=== PATIENT | male | born 1970 | race Two or more races ===

== ENCOUNTER 2017-08-31 19:15 | Emergency (ER) | payer SELFPAY ==
[~2017-08-31] VITALS: Ht 167.6 cm; Wt 91.2 kg
[2017-08-31] MEDS ORDERED: PREDNISONE 10MG10 MG PO (19:41)
[2017-08-31] MEDS ORDERED: FAMCICLOVIR500 MG PO (19:41)
--- NOTE | 2017-08-31 19:42 | Emergency Room Report ---
History of Present Illness Time Seen by 1918 Presenting Problem in Triage Pt arrived:Walked Presenting Problem:C/O PERIODS OF SLEEP APNEA ON TUESDAY AND WOKE UP TUESDAY AM WITH RIGHT SIDED FACIAL DROOP AND DIFFICULTY CLOSING RIGHT EYE. EQUAL RN NEUROSURGICAL/ MOVEMENT NOTED BILATERALLY. 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 N Clinical Suspician of Infection? N Mental Status: 1 - Regular (Normal Baseline) Sepsis Risk:Low Sepsis Risk Have you (or family members/close friends) recently traveled outside the [place]? N If Yes, where/when: Have you had exposure to infectious disease within the past month? N TB? Other? Specify: Comment The patient complains of RIGHT sided facial weakness that began overnight on Tuesday or Tuesday morning. He woke up with it in the morning on Tuesday 4 days ago. He has no numbness, no visual problems, no speech problems, no problems with his arms or legs area no dizziness or loss of balance. No headache. No rashes. He is on no medications and is normally healthy. He noted that when he blew his nose on Tuesday some mucus came out into his right eye, which was unusual for him. Also his felt that he had some sleep apnea on Tuesday night. ALLERGIES Coded Allergies: No Known Allergies (08/31/17) History Medical History General CAD? No Angina: No [place]: No Hypertension? No Hyperlipidemia? No CHF? No DVT? No PE? No COPD? No Asthma? No Anemia? No GERD? No Gastric ulcers? No GI Bleed? No Hernia? No Thyroid Problems? No Hypothyroidism? No CVA? No Seizures? No Diabetes? No Renal Insuffiency? No End Stage Renal Disease? No UTI? No Stones? No BPH? No GB Disease: No Nephritic Syndrome? No Asplenia? No Hepatitis? No Sickle Cell Disease? No Arthritis? No Migraines? No Cataracts? No Glaucoma? No MRSA? No HIV? No TB? No Anxiety? No Depression? No Cancer? No Immunization Hx DT/Tetanus Unknown Surgical Hx Previous Surgery?N Social History Smoking Hx Smoker: Never Smoker Tobacco: No Alcohol Alcohol: No Review of Systems All Other Systems Reviewed and Negative Constitutional denies fever Eyes denies blindness, denies blurred vision, denies decreased acuity, denies vision change Respiratory denies shortness of breath Cardiovascular denies chest pain Gastrointestinal denies abdominal pain, denies nausea, denies vomiting Psychiatric/Neurological denies headache, denies numbness, weakness (RIGHT face only) Physical Exam Vital Signs Vital Signs Date Time Temp Pulse Resp B/P Pulse O2 O2 Flow FiO2 Ox Delivery Rate 08/31 1917 98.8 89 20 165/102 97 - WBC >12,000 or <4,000 or 10% bands? 2 or more SIRS Criteria Met? B/P:165/102 MAP:123 Creatinine >2.0? UA output<0.5ml/kg/hr for 2 hrs? Platelet count >100,000? Lactate >2.0mmol/1? INR >1.2 or PTT > than 60 sec? Evidence of Organ Dysfunction? Provider documented clinical suspician of infection? N Sepsis Criteria Count: 1 Sepsis Risk: Low Sepsis Risk General Appearance normal appearance, WD/WN Eye Exam - bilateral eye normal exam, bilateral eye PERRL, bilateral eye EOMI Ear, Nose, Throat hearing grossly normal, normal ENT inspection, external auditory canals and tympanic membranes normal. Neck normal inspection, non-tender, supple, full range of motion Respiratory Status Yes: trachea midline, chest symmetrical, non tender chest. No: respiratory distress. Lung Sounds bilateral: normal breath sounds, lungs clear. Cardiovascular normal exam, regular rate/rhythm, no peripheral edema, no gallop, no JVD, no murmur, no rub, normal peripheral pulses Peripheral Pulses Pulses normal Yes Gastrointestinal normal bowel sounds, normal exam, non tender, soft, no organomegaly Extremities non-tender, normal range of motion, normal inspection Neurologic alert, oriented x 3, RIGHT facial palsy, upper and lower face. Unable to completely close RIGHT eye, weak blink on the RIGHT. Unable to raise RIGHT eyebrow or wrinkle nose. RIGHT lower facial droop, unable to smile with RIGHT side of mouth., sensation of face and remainder of body normal., remainder of cranial nerves, motor, sensory, and cerebellar examinations all normal. Speech normal. Mentation normal., no rashes or vesicles. Mental status normal mood/affect Skin intact, normal color, warm/dry Comments Blood pressure 140/90 Medical Decision Making LABS/Meds/Orders Pt receiving controlled substance in ED? No Results/Orders Current Medication Orders Sig/Alcides Start time Last Medication Dose Route Stop Time Status Admin Acyclovir Sodium 800 MG ONCE ONE 08/31 1945 AC PO 08/31 1946 Methylprednisolone 125 MG ONCE ONE 08/31 1945 AC Sodium Succinate IV 08/31 1946 Sodium Chloride 10 ML PRN PRN 08/31 1930 AC IV 09/01 1922 Orders Procedure Date/time Status IV SALINE LOCK 08/31 1923 Active Departure Departure Disposition DC Home or Self Care(routine) Clinical Impression Primary Impression: Castellano's palsy Condition STABLE Referrals NO REFERRAL (PCP) Patient Instructions DI for Castellano's Palsy [facility] Use in RIGHT eye every hour while awake and once before bed. Close eye lid on RIGHT side with tape to hold it closed overnight. Follow-up recheck by primary care physician next week. Prescriptions Current Visit Scripts Famciclovir (Famciclovir 500MG) 500 MG PO TID #21 TAB Prednisone (Prednisone 10MG) 10 MG PO DAILY #27 TAB 6 po on days 1-2, then decrease dose by 1 pill per day until gone ED Critical Care Critical Care No at 1941
--- OUTSIDE RECORDS SUMMARY | 2017-08-31 19:49 | External Medical Summary Rpt | CCD ---
Demographics Preferred Language Bangladeshi Marital Status Unknown Restorationism Affiliation Unknown Race Unknown Ethnic Group Unknown Author Author , JERRI GUTHRIE Address Unknown Phone Immunization No patient found.
--- OUTSIDE RECORDS SUMMARY | 2017-08-31 19:49 | External Medical Summary Rpt | CCD ---
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 Name Role Phone FLORINA MCKINNEY MD, Unavailable Unavailable FLORINA MCKINNEY MD Purpose Continuity of Care Document - 08-19-2013 through 2016 Problems Code Diagnosis DOS Provider Status 462 462 ACUTE 08-19-2013 [place] [facility] Allergies, Adverse Reactions, Alerts Type Allergy to substance Adverse Reaction to Substance Substance Reaction Severity NO KNOWN ALLERGIES Unknown Unknown Vital Signs 08-19-2013 09:53 Name Value Interpretat Reference Comment ion Range Body 99.6 [degF] Temperature BP 64 mm[Hg] Diastolic BP Systolic 161 mm[Hg] Heart 95 /min Rate/Pulse O2% 97 % Respiratory 20 /min Rate Results Labs Lab Lab Date Result Refere Interp Status Commen Order Detail nces retati t Range on STREP SCREEN (RAPID) (08-19-2013 09:10) STREP NEGATIV complet SCREEN 013 E ed (RAPID) 09:10 Encounters Encounter Start End Date Code Location Performer Type Date Emergency KERON MCKINNEY MD (ER) 3 09:14 3 09:57 [facility]
--- OUTSIDE RECORDS SUMMARY | 2017-08-31 19:49 | External Medical Summary Rpt ---
Author Author JERRI Collado, [employer] Organization [employer] Address Unknown Phone Unavailable
--- OUTSIDE RECORDS SUMMARY | 2017-08-31 19:49 | External Medical Summary Rpt | CCD ---
Demographics Preferred Language Nicaraguan Marital Status Unknown Orthodoxy Affiliation Unknown Race Unknown Ethnic Group Unknown Author Author , JERRI GUTHRIE Address Unknown Phone Immunization No patient found.
--- OUTSIDE RECORDS SUMMARY | 2017-08-31 19:49 | External Medical Summary Rpt | CCD ---
Author Author [employer] Address Unknown Phone Unavailable Purpose Continuity of Care Document - through 2016
--- OUTSIDE RECORDS SUMMARY | 2017-08-31 19:49 | External Medical Summary Rpt | CCD ---
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
[2017-08-31 19:57] VITALS: BP 131/81
== END 2017-08-31 20:07 | disposition home or self-care (01) ==
LOC: ER 19:15
DX: G51.0 Bell's palsy (principal)